=== PATIENT | female | born 1995 | race American Indian/Alaskan Native ===

== ENCOUNTER 2018-03-04 20:40 | Emergency (ER) | payer SELFPAY ==
[2018-03-04 20:46] VITALS: BP 115/69
[2018-03-04] MEDS ORDERED: DUONEB *Not for PRN Use IH ONE ×2 (21:08→21:13)
[2018-03-05] MEDS ORDERED: DECADRON IV ONE (01:23)
[2018-03-05] MEDS ORDERED: PROVENTIL IH ONE (01:24)
--- NOTE | 2018-03-05 01:41 | XRay Report ---
FINAL REPORT EXAM: XR CHEST ROUTINE 2V HISTORY: subjective fever and wheezing rhonchus TECHNIQUE: PA and lateral views of the chest were submitted. FINDINGS: The lungs are clear. Pleural fluid is not seen. The heart size is normal. The bones and soft tissues are well maintained. IMPRESSION: Normal chest
--- NOTE | 2018-03-05 02:41 | Emergency Department Report ---
- General Chief Complaint: Sore Throat Stated Complaint: CHEST PAIN,COUGH,SORE THROAT Time Seen by Provider: 03/05/18 01:23 Source: patient Mode of arrival: Ambulatory Limitations: No Limitations - Related Data Previous Rx's Medication Instructions Recorded Last Taken Type Hyoscyamine Subl [Levsin Sl] 0.125 mg SL Q4HR PRN #15 tablet 06/11/13 Unknown Rx Ondansetron [Zofran] 4 mg PO Q6HR PRN #20 tablet 06/11/13 Unknown Rx ALBUTEROL Inhaler [ProAir HFA 2 puff IH QID PRN #1 inhalation 03/05/18 Unknown Rx Inhaler] Prednisone [predniSONE 5 mg (6-Day 5 mg PO .TAPER #1 tab.ds.pk 03/05/18 Unknown Rx Pack, 21 Tabs)] Allergies Allergy/AdvReac Type Severity Reaction Status Date / Time No Known Allergies Allergy Verified 03/04/18 21:04 ED Review of Systems ROS: Stated complaint: CHEST PAIN,COUGH,SORE THROAT Other details as noted in HPI ED Past Medical Hx - Past Medical History Previous Medical History?: No - Surgical History Past Surgical History?: No - Social History Smoking Status: Never Smoker Substance Use Type: None - Medications Home Medications: Home Medications Medication Instructions Recorded Confirmed Last Taken Type Hyoscyamine Subl [Levsin Sl] 0.125 mg SL Q4HR PRN #15 tablet 06/11/13 Unknown Rx Ondansetron [Zofran] 4 mg PO Q6HR PRN #20 tablet 06/11/13 Unknown Rx ALBUTEROL Inhaler [ProAir HFA 2 puff IH QID PRN #1 inhalation 03/05/18 Unknown Rx Inhaler] Prednisone [predniSONE 5 mg (6-Day 5 mg PO .TAPER #1 tab.ds.pk 03/05/18 Unknown Rx Pack, 21 Tabs)] ED Physical Exam - General Limitations: No Limitations ED Course Vital Signs 03/04/18 03/04/18 03/04/18 20:39 21:10 21:20 Temperature 98.4 F Pulse Rate 85 Pulse Rate [ 75 82 Posterior Bilateral Throughout] Respiratory 18 Rate Respiratory 18 16 Rate [Posterior Bilateral Throughout] Blood Pressure 115/69 O2 Sat by Pulse 97 Oximetry - Reevaluation(s) Reevaluation #1: 03/05/18 02:35 Patient reports that she feels much better after having the prednisone and another treatment Critical care attestation.: If time is entered above; I have spent that time in minutes in the direct care of this critically ill patient, excluding procedure time. ED Disposition Clinical Impression: Wheezing on auscultation, Cough Disposition: - TO HOME OR SELFCARE Is pt being admited?: No Does the pt Need Aspirin: No Condition: Stable Instructions: Reactive Airways Disease (ED) Additional Instructions: Please use inhaler as prescribed. Please take the prednisone as prescribed. If her symptoms persist or gets worse please follow up with her primary care provider. Prescriptions: ALBUTEROL Inhaler [ProAir HFA Inhaler] 2 puff IH QID PRN #1 inhalation PRN Reason: Shortness Of Breath Prednisone [predniSONE 5 mg (6-Day Pack, 21 Tabs)] 5 mg PO .TAPER #1 tab.ds.pk Referrals: PRIMARY CARE, [Primary Care Provider] - 3-5 Days [facility] [Provider Group] - 3-5 Days Forms: Work/School Release Form(ED)
== END 2018-03-05 02:40 | disposition home or self-care (01) ==
LOC: ED 20:40
DX: R06.2 Wheezing (principal); R05 Cough; J02.9 Acute pharyngitis, unspecified; R07.9 Chest pain, unspecified
CPT/HCPCS: 71046; 94640; 96374; 99284; J1100